=== PATIENT | male | born 1945 | race Caucasian/White ===

== ENCOUNTER 2020-06-17 17:48 | Inpatient (IN) ==
[2020-06-17] MEDS ORDERED: 0.9 % Sodium Chloride 1,000 ML IVC ONE (18:32)
[2020-06-17 19:28] LABS: Basophils # 0.1 K/mcL (0.0-0.2); Basophils % 0.5 %; Eosinophils # 0.1 K/mcL (0.0-0.6); Eosinophils % 1.1 %; Hematocrit 42.9 % (37.5-50.1); Hemoglobin 14.1 g/dL (12.9-16.9); Immature Granulocytes % 0.5 % (0-4); Lymphocytes # 1.7 K/mcL (0.6-4.6); Lymphocytes % 16.7 %; Mean Corpuscular HGB Conc 32.9 g/dL (31.6-35.5); Mean Corpuscular Hemoglobin 28.9 pg (28.0-33.3); Mean Corpuscular Volume 87.9 fL (83.0-100.0); Mean Platelet Volume 10.1 fL (9.4-12.4); Monocytes # 0.8 K/mcL (0.0-1.3); Monocytes % 8.1 %; Neutrophils # 7.5 K/mcL (1.6-8.9); Platelet Count 216 K/mcL (140-400); Red Blood Count 4.88 M/mcL (4.19-5.50); Red Cell Distribution Width 13.9 % (11.5-14.5); Segmented Neutrophils % 73.1 %; White Blood Count 10.2 K/mcL (4.3-11.1)
[2020-06-17 19:31] LABS: INR 1.2; Prothrombin Time 13.5 Seconds (9.4-12.1)
[2020-06-17 19:33] LABS: Activated Partial Thrombo Time 28.8 Seconds (26.0-36.0); D-Dimer < 215 ng/mLFEU (0-500)
[2020-06-17] MEDS ORDERED: Ipratropium/Albuterol Neb 3 ML IH ONE (19:42)
[2020-06-17] MEDS ORDERED: Dexamethasone 4 MG/ML VIAL IVP STA (19:43)
[2020-06-17 20:00] LABS: Alanine Aminotransferase 50 Units/L (7-52); Albumin 4.3 g/dL (3.5-5.7); Albumin/Globulin Ratio 1.4 (1.1-2.2); Alkaline Phosphatase 74 Units/L (34-104); Aspartate Amino Transferase 44 Units/L (13-39); BUN/Creatinine Ratio 24 (6-26); Bilirubin,Direct 0.1 mg/dL (0.0-0.2); Bilirubin,Indirect 0.2 mg/dL (0.0-1.0); Bilirubin,Total 0.3 mg/dL (0.3-1.0); Blood Urea Nitrogen 16 mg/dL (8-23); Calcium 9.4 mg/dL (8.6-10.3); Carbon Dioxide 28 mEq/L (23-29); Chloride 103 mEq/L (98-107); Glucose 203 mg/dL (70-105); Osmolality,Calculated 301 (280-300); Potassium 4.1 mEq/L (3.5-5.1); Sodium 142 mEq/L (136-145); Total Protein 7.3 g/dL (6.4-8.9); Troponin I < 0.03 ng/mL (< 0.04); eGFR For African Americans > 60 (> 60); eGFR For Non-African Americans > 60 (> 60)
[2020-06-17] MEDS ORDERED: Ondansetron 4 MG/2 ML VIAL IVP ONE (20:48)
[2020-06-17] MEDS ORDERED: Azithromycin 500 MG in 0.9 % Sodium Chloride 250 ML IVPB ONE (22:01)
[2020-06-17] MEDS ORDERED: Naloxone 0.4 MG/ML INJ IVP PRN (22:12)
[2020-06-17] MEDS ORDERED: D5% in Water 1,000 ML IVC PRN (22:20)
[2020-06-17] MEDS ORDERED: *HR* Dextrose 50 % in Water (Vial) 50 ML VIAL IVP PRN (22:20)
[2020-06-17] MEDS ORDERED: Dextrose Gel 15 GM/37.5 ML TUBE PO PRN ×2 (22:20)
[2020-06-17] MEDS: Ipratropium/Albuterol Neb 3 ML IH SCH (23:35)
[2020-06-17 23:59] LABS: ABG Base Excess 1 mEq/L (-2 to 3); ABG HCO3 26 mEq/L (21-27); ABG Oxygen Saturation 94 % (95-98); ABG PCO2 43 mmHg (35-45); ABG PH 7.39 pH Units (7.32-7.45); ABG PO2 73 mmHg (85-104); ABG TCO2 27 mEq/L (20-26)
[2020-06-18] MEDS: Melatonin 3 MG TABLET PO SCH ×2 (00:48→21:18)
[2020-06-18 02:42] LABS: Basophils % 0.3 %; Hematocrit 40.2 % (37.5-50.1); Hemoglobin 13.1 g/dL (12.9-16.9); Immature Granulocytes % 0.7 % (0-4); Lymphocytes # 1.1 K/mcL (0.6-4.6); Lymphocytes % 12.1 %; Mean Corpuscular HGB Conc 32.6 g/dL (31.6-35.5); Mean Corpuscular Hemoglobin 29.6 pg (28.0-33.3); Mean Corpuscular Volume 90.7 fL (83.0-100.0); Monocytes # 0.6 K/mcL (0.0-1.3); Monocytes % 6.3 %; Neutrophils # 7.4 K/mcL (1.6-8.9); Platelet Count 203 K/mcL (140-400); Red Blood Count 4.43 M/mcL (4.19-5.50); Red Cell Distribution Width 14.3 % (11.5-14.5); Segmented Neutrophils % 80.6 %; White Blood Count 9.1 K/mcL (4.3-11.1)
[2020-06-18 03:03] LABS: BUN/Creatinine Ratio 21 (6-26); Blood Urea Nitrogen 16 mg/dL (8-23); Calcium 9.1 mg/dL (8.6-10.3); Carbon Dioxide 25 mEq/L (23-29); Chloride 104 mEq/L (98-107); Glucose 268 mg/dL (70-105); Magnesium 1.7 mg/dL (1.6-2.6); Osmolality,Calculated 301 (280-300); Phosphorous 3.6 mg/dL (2.7-4.5); Potassium 4.1 mEq/L (3.5-5.1); Sodium 140 mEq/L (136-145); eGFR For African Americans > 60 (> 60); eGFR For Non-African Americans > 60 (> 60)
[2020-06-18] MEDS: Ipratropium/Albuterol Neb 3 ML IH SCH ×5 (04:05→20:09)
[2020-06-18] MEDS: MethylPREDNISolone 40 MG/ML VIAL IVP SCH ×3 (04:22→21:04)
[2020-06-18] MEDS: *HR* Heparin 5,000 UNIT/ML VIAL SQ SCH ×3 (06:59→21:16)
[2020-06-18] MEDS: Ondansetron 4 MG/2 ML VIAL IVP PRN (06:59)
[2020-06-18] MEDS: Budesonide/Formoterol 160/4.5 1 PUFF INH IH SCH ×2 (07:38→20:09)
[2020-06-18] MEDS: Metoprolol XL (24 HR) Succ 25 MG TAB.ER.24H PO SCH (07:59)
[2020-06-18] MEDS: Pregabalin 75 MG CAPSULE PO SCH ×3 (07:59→21:18)
[2020-06-18] MEDS: GuaiFENesin Liq 200 MG/10 ML UDC PO SCH ×2 (07:59→21:16)
[2020-06-18] MEDS: Aspirin 81 MG TAB.CHEW PO SCH (07:59)
[2020-06-18] MEDS: Ascorbic Acid 500 MG TABLET PO SCH (07:59)
[2020-06-18] MEDS: levoFLOXacin 750 MG/150 ML 750 MG/150 ML BAG IVPB SCH (07:59)
[2020-06-18] MEDS: Furosemide 20 MG/2 ML VIAL IVP SCH ×2 (07:59→17:00)
[2020-06-18] MEDS: *HR* LORazepam 1 MG TABLET PO SCH ×2 (07:59→21:18)
[2020-06-18] MEDS: Insulin LISPRO 300 UNITS/3 ML VIAL SQ SCH ×3 (08:15→17:00)
[2020-06-18] MEDS: Insulin DETEMIR 100 UNIT/ML X5UNITS SQ SCH ×2 (08:16→21:19)
[2020-06-18] MEDS ORDERED: Topiramate 100 MG TABLET PO SCH (09:00)
[2020-06-18 13:10] LABS: Estimated Average Glucose 258 mg/dl
[2020-06-19] MEDS: Ipratropium/Albuterol Neb 3 ML IH SCH ×7 (00:09→23:57)
[2020-06-19] MEDS: MethylPREDNISolone 40 MG/ML VIAL IVP SCH ×3 (04:00→20:16)
[2020-06-19] MEDS: *HR* Heparin 5,000 UNIT/ML VIAL SQ SCH ×3 (05:31→20:38)
[2020-06-19 06:56] LABS: Basophils # 0.1 K/mcL (0.0-0.2); Basophils % 0.7 %; Eosinophils # 0.1 K/mcL (0.0-0.6); Eosinophils % 0.8 %; Hematocrit 41.8 % (37.5-50.1); Hemoglobin 13.4 g/dL (12.9-16.9); Immature Granulocytes % 0.7 % (0-4); Lymphocytes # 1.7 K/mcL (0.6-4.6); Mean Corpuscular HGB Conc 32.1 g/dL (31.6-35.5); Mean Corpuscular Hemoglobin 28.9 pg (28.0-33.3); Mean Corpuscular Volume 90.3 fL (83.0-100.0); Mean Platelet Volume 11.1 fL (9.4-12.4); Monocytes # 0.8 K/mcL (0.0-1.3); Monocytes % 9.1 %; Neutrophils # 6.4 K/mcL (1.6-8.9); Platelet Count 215 K/mcL (140-400); Red Blood Count 4.63 M/mcL (4.19-5.50); Red Cell Distribution Width 14.6 % (11.5-14.5); Segmented Neutrophils % 69.7 %; White Blood Count 9.1 K/mcL (4.3-11.1)
[2020-06-19 07:17] LABS: BUN/Creatinine Ratio 26 (6-26); Blood Urea Nitrogen 21 mg/dL (8-23); Calcium 9.8 mg/dL (8.6-10.3); Carbon Dioxide 26 mEq/L (23-29); Chloride 102 mEq/L (98-107); Glucose 193 mg/dL (70-105); Magnesium 1.9 mg/dL (1.6-2.6); Osmolality,Calculated 294 (280-300); Phosphorous 3.5 mg/dL (2.7-4.5); Potassium 3.7 mEq/L (3.5-5.1); Sodium 138 mEq/L (136-145); eGFR For African Americans > 60 (> 60); eGFR For Non-African Americans > 60 (> 60)
[2020-06-19] MEDS: Budesonide/Formoterol 160/4.5 1 PUFF INH IH SCH ×2 (07:21→19:19)
[2020-06-19] MEDS: *HR* LORazepam 1 MG TABLET PO SCH (07:45)
[2020-06-19] MEDS: Aspirin 81 MG TAB.CHEW PO SCH (07:45)
[2020-06-19] MEDS: Pregabalin 75 MG CAPSULE PO SCH ×3 (07:45→20:28)
[2020-06-19] MEDS: Furosemide 20 MG/2 ML VIAL IVP SCH ×2 (07:46→16:55)
[2020-06-19] MEDS: Ascorbic Acid 500 MG TABLET PO SCH (07:46)
[2020-06-19] MEDS: GuaiFENesin Liq 200 MG/10 ML UDC PO SCH (07:46)
[2020-06-19] MEDS: Metoprolol XL (24 HR) Succ 25 MG TAB.ER.24H PO SCH (07:46)
[2020-06-19] MEDS: levoFLOXacin 750 MG/150 ML 750 MG/150 ML BAG IVPB SCH (07:46)
[2020-06-19] MEDS: Insulin LISPRO 300 UNITS/3 ML VIAL SQ SCH ×3 (07:51→16:55)
[2020-06-19] MEDS: Insulin DETEMIR 100 UNIT/ML X5UNITS SQ SCH ×2 (07:52→20:29)
[2020-06-19] MEDS ORDERED: *HR* LORazepam 1 MG TABLET PO PRN (14:08)
[2020-06-19] MEDS: Ondansetron 4 MG/2 ML VIAL IVP PRN (20:28)
[2020-06-19] MEDS: Melatonin 3 MG TABLET PO SCH (20:29)
[2020-06-20] MEDS: MethylPREDNISolone 40 MG/ML VIAL IVP SCH ×3 (01:15→16:17)
[2020-06-20] MEDS: Ipratropium/Albuterol Neb 3 ML IH SCH ×6 (03:50→23:44)
[2020-06-20 05:52] LABS: Basophils # 0.1 K/mcL (0.0-0.2); Basophils % 0.6 %; Eosinophils % 0.3 %; Hematocrit 41.7 % (37.5-50.1); Hemoglobin 13.4 g/dL (12.9-16.9); Immature Granulocytes % 0.5 % (0-4); Lymphocytes # 1.4 K/mcL (0.6-4.6); Lymphocytes % 15.7 %; Mean Corpuscular HGB Conc 32.1 g/dL (31.6-35.5); Mean Corpuscular Hemoglobin 29.1 pg (28.0-33.3); Mean Corpuscular Volume 90.5 fL (83.0-100.0); Mean Platelet Volume 10.2 fL (9.4-12.4); Monocytes # 0.6 K/mcL (0.0-1.3); Monocytes % 6.5 %; Neutrophils # 6.7 K/mcL (1.6-8.9); Platelet Count 200 K/mcL (140-400); Red Blood Count 4.61 M/mcL (4.19-5.50); Red Cell Distribution Width 14.6 % (11.5-14.5); Segmented Neutrophils % 76.4 %; White Blood Count 8.7 K/mcL (4.3-11.1)
[2020-06-20 06:10] LABS: BUN/Creatinine Ratio 26 (6-26); Blood Urea Nitrogen 24 mg/dL (8-23); Calcium 9.3 mg/dL (8.6-10.3); Carbon Dioxide 24 mEq/L (23-29); Chloride 103 mEq/L (98-107); Glucose 303 mg/dL (70-105); Magnesium 1.9 mg/dL (1.6-2.6); Osmolality,Calculated 297 (280-300); Phosphorous 3.9 mg/dL (2.7-4.5); Potassium 4.6 mEq/L (3.5-5.1); Sodium 136 mEq/L (136-145); eGFR For African Americans > 60 (> 60); eGFR For Non-African Americans > 60 (> 60)
[2020-06-20] MEDS: *HR* Heparin 5,000 UNIT/ML VIAL SQ SCH ×3 (06:22→20:36)
[2020-06-20] MEDS: Insulin LISPRO 300 UNITS/3 ML VIAL SQ SCH ×3 (08:16→16:19)
[2020-06-20] MEDS: Budesonide/Formoterol 160/4.5 1 PUFF INH IH SCH ×2 (08:20→20:04)
[2020-06-20] MEDS: Azithromycin 250 MG TABLET PO SCH (08:27)
[2020-06-20] MEDS: Furosemide 20 MG/2 ML VIAL IVP SCH ×2 (08:27→16:18)
[2020-06-20] MEDS: Metoprolol XL (24 HR) Succ 25 MG TAB.ER.24H PO SCH (08:27)
[2020-06-20] MEDS: Ascorbic Acid 500 MG TABLET PO SCH (08:28)
[2020-06-20] MEDS: Aspirin 81 MG TAB.CHEW PO SCH (08:28)
[2020-06-20] MEDS: Pregabalin 75 MG CAPSULE PO SCH ×3 (08:28→20:25)
[2020-06-20] MEDS: Insulin DETEMIR 100 UNIT/ML X5UNITS SQ SCH ×2 (08:37→20:37)
[2020-06-20] MEDS: Melatonin 3 MG TABLET PO SCH (20:25)
[2020-06-21] MEDS: MethylPREDNISolone 40 MG/ML VIAL IVP SCH ×2 (00:32→18:53)
[2020-06-21] MEDS: Ipratropium/Albuterol Neb 3 ML IH SCH ×5 (04:09→20:22)
[2020-06-21 06:27] LABS: Basophils % 0.4 %; Eosinophils % 0.1 %; Hematocrit 42.4 % (37.5-50.1); Hemoglobin 13.4 g/dL (12.9-16.9); Immature Granulocytes % 0.6 % (0-4); Lymphocytes # 1.6 K/mcL (0.6-4.6); Lymphocytes % 16.9 %; Mean Corpuscular HGB Conc 31.6 g/dL (31.6-35.5); Mean Corpuscular Hemoglobin 28.6 pg (28.0-33.3); Mean Corpuscular Volume 90.4 fL (83.0-100.0); Mean Platelet Volume 10.9 fL (9.4-12.4); Monocytes # 0.7 K/mcL (0.0-1.3); Monocytes % 7.1 %; Neutrophils # 7.3 K/mcL (1.6-8.9); Platelet Count 218 K/mcL (140-400); Red Blood Count 4.69 M/mcL (4.19-5.50); Red Cell Distribution Width 14.4 % (11.5-14.5); Segmented Neutrophils % 74.9 %; White Blood Count 9.7 K/mcL (4.3-11.1)
[2020-06-21 06:45] LABS: BUN/Creatinine Ratio 33 (6-26); Blood Urea Nitrogen 26 mg/dL (8-23); Calcium 9.3 mg/dL (8.6-10.3); Carbon Dioxide 24 mEq/L (23-29); Chloride 102 mEq/L (98-107); Glucose 315 mg/dL (70-105); Magnesium 2.1 mg/dL (1.6-2.6); Osmolality,Calculated 299 (280-300); Potassium 4.5 mEq/L (3.5-5.1); Sodium 136 mEq/L (136-145); eGFR For African Americans > 60 (> 60); eGFR For Non-African Americans > 60 (> 60)
[2020-06-21] MEDS: *HR* Heparin 5,000 UNIT/ML VIAL SQ SCH (06:50)
[2020-06-21] MEDS ORDERED: Morphine Sulfate 2 MG/ML SYRINGE IVP ONE (07:56)
[2020-06-21] MEDS: Nitroglycerin 0.4 MG TAB.SUBL SL PRN ×3 (07:59→08:14)
[2020-06-21] MEDS ORDERED: Perflutren Lipid Microsphere 1.3 ML in 0.9 % Sodium Chloride 8.7 ML IVP PRN (08:05)
[2020-06-21] MEDS ORDERED: *HR* Heparin 5,000 UNIT/ML VIAL IVP ONE (08:09)
[2020-06-21] MEDS ORDERED: *HR* Heparin 5,000 UNIT/ML VIAL IVP PRN ×2 (08:09)
[2020-06-21] MEDS ORDERED: Aspirin 325 MG TABLET PO ONE (08:11)
[2020-06-21] MEDS ORDERED: Heparin 25,000UNIT/250ML 1/2NS 25,000 UNIT/250 ML IV.SOLN IVC SCH (08:15)
[2020-06-21] MEDS: Pregabalin 75 MG CAPSULE PO SCH ×3 (08:24→20:44)
[2020-06-21] MEDS: Azithromycin 250 MG TABLET PO SCH (08:24)
[2020-06-21] MEDS: Metoprolol XL (24 HR) Succ 25 MG TAB.ER.24H PO SCH (08:24)
[2020-06-21] MEDS: Insulin LISPRO 300 UNITS/3 ML VIAL SQ SCH ×3 (08:25→16:40)
[2020-06-21] MEDS: Ascorbic Acid 500 MG TABLET PO SCH (08:25)
[2020-06-21] MEDS: Furosemide 20 MG/2 ML VIAL IVP SCH ×2 (08:30→16:47)
[2020-06-21] MEDS: Aspirin 81 MG TAB.CHEW PO SCH (08:46)
[2020-06-21] MEDS: Insulin DETEMIR 100 UNIT/ML X5UNITS SQ SCH ×3 (08:50→20:49)
[2020-06-21 10:37] LABS: Hematocrit 41.7 % (37.5-50.1); Hemoglobin 13.5 g/dL (12.9-16.9); Mean Corpuscular HGB Conc 32.4 g/dL (31.6-35.5); Mean Corpuscular Hemoglobin 29.5 pg (28.0-33.3); Mean Corpuscular Volume 91.2 fL (83.0-100.0); Mean Platelet Volume 10.5 fL (9.4-12.4); Platelet Count 200 K/mcL (140-400); Red Blood Count 4.57 M/mcL (4.19-5.50); Red Cell Distribution Width 14.3 % (11.5-14.5)
[2020-06-21 10:44] LABS: INR 1.2; Prothrombin Time 13.6 Seconds (9.4-12.1)
[2020-06-21 10:47] LABS: Heparin anti-factor XA UFH 1.35 IU/mL (0.30-0.70)
[2020-06-21] MEDS: Budesonide/Formoterol 160/4.5 1 PUFF INH IH SCH ×2 (11:47→20:22)
[2020-06-21] MEDS: predniSONE 20 MG TABLET PO SCH (16:48)
[2020-06-21] MEDS: Melatonin 3 MG TABLET PO SCH (20:44)
[2020-06-22] MEDS: Ipratropium/Albuterol Neb 3 ML IH SCH ×7 (00:13→23:54)
[2020-06-22 06:00] LABS: Basophils # 0.1 K/mcL (0.0-0.2); Basophils % 0.5 %; Eosinophils % 0.4 %; Hematocrit 40.8 % (37.5-50.1); Hemoglobin 13.4 g/dL (12.9-16.9); Immature Granulocytes % 0.7 % (0-4); Lymphocytes # 2.5 K/mcL (0.6-4.6); Lymphocytes % 24.3 %; Mean Corpuscular HGB Conc 32.8 g/dL (31.6-35.5); Mean Corpuscular Hemoglobin 29.8 pg (28.0-33.3); Mean Corpuscular Volume 90.9 fL (83.0-100.0); Mean Platelet Volume 10.9 fL (9.4-12.4); Monocytes % 9.6 %; Neutrophils # 6.6 K/mcL (1.6-8.9); Platelet Count 215 K/mcL (140-400); Red Blood Count 4.49 M/mcL (4.19-5.50); Red Cell Distribution Width 14.3 % (11.5-14.5); Segmented Neutrophils % 64.5 %; White Blood Count 10.3 K/mcL (4.3-11.1)
[2020-06-22] MEDS ORDERED: Regadenoson 0.4 MG/5 ML SYRINGE IVP ONE (06:00)
[2020-06-22 06:19] LABS: BUN/Creatinine Ratio 39 (6-26); Blood Urea Nitrogen 27 mg/dL (8-23); Calcium 9.2 mg/dL (8.6-10.3); Carbon Dioxide 25 mEq/L (23-29); Chloride 103 mEq/L (98-107); Glucose 233 mg/dL (70-105); Osmolality,Calculated 299 (280-300); Phosphorous 3.9 mg/dL (2.7-4.5); Sodium 138 mEq/L (136-145); eGFR For African Americans > 60 (> 60); eGFR For Non-African Americans > 60 (> 60)
[2020-06-22] MEDS: Budesonide/Formoterol 160/4.5 1 PUFF INH IH SCH ×2 (07:29→20:03)
[2020-06-22] MEDS: Insulin LISPRO 300 UNITS/3 ML VIAL SQ SCH ×3 (10:07→17:53)
[2020-06-22] MEDS: Furosemide 20 MG/2 ML VIAL IVP SCH ×2 (10:35→17:54)
[2020-06-22] MEDS: Aspirin 81 MG TAB.CHEW PO SCH (10:36)
[2020-06-22] MEDS: Azithromycin 250 MG TABLET PO SCH (10:36)
[2020-06-22] MEDS: Pregabalin 75 MG CAPSULE PO SCH ×3 (10:36→21:09)
[2020-06-22] MEDS: Metoprolol XL (24 HR) Succ 25 MG TAB.ER.24H PO SCH (10:37)
[2020-06-22] MEDS: Ascorbic Acid 500 MG TABLET PO SCH (10:37)
[2020-06-22] MEDS: predniSONE 20 MG TABLET PO SCH ×2 (10:37→17:54)
[2020-06-22] MEDS: Insulin DETEMIR 100 UNIT/ML X5UNITS SQ SCH ×2 (10:38→21:13)
[2020-06-22] MEDS ORDERED: Isovue-370 500 ML BOTTLE IVP ONE (14:17)
[2020-06-22] MEDS: *HR* Heparin 5,000 UNIT/ML VIAL SQ SCH (17:54)
[2020-06-22] MEDS: Melatonin 3 MG TABLET PO SCH (21:10)
[2020-06-22] MEDS: Ondansetron 4 MG/2 ML VIAL IVP PRN (21:14)
[2020-06-23] MEDS: Ipratropium/Albuterol Neb 3 ML IH SCH ×4 (03:52→15:32)
[2020-06-23 06:24] LABS: White Blood Count 11.8 K/mcL (4.3-11.1)
[2020-06-23 06:25] LABS: Basophils # 0.1 K/mcL (0.0-0.2); Basophils % 0.4 %; Hematocrit 42.6 % (37.5-50.1); Immature Granulocytes % 0.9 % (0-4); Lymphocytes # 2.3 K/mcL (0.6-4.6); Lymphocytes % 19.1 %; Mean Corpuscular HGB Conc 32.9 g/dL (31.6-35.5); Mean Corpuscular Hemoglobin 29.5 pg (28.0-33.3); Mean Corpuscular Volume 89.7 fL (83.0-100.0); Mean Platelet Volume 10.6 fL (9.4-12.4); Monocytes % 8.5 %; Neutrophils # 8.4 K/mcL (1.6-8.9); Platelet Count 234 K/mcL (140-400); Red Blood Count 4.75 M/mcL (4.19-5.50); Red Cell Distribution Width 14.5 % (11.5-14.5); Segmented Neutrophils % 71.1 %
[2020-06-23] MEDS: *HR* Heparin 5,000 UNIT/ML VIAL SQ SCH (06:32)
[2020-06-23 06:43] LABS: BUN/Creatinine Ratio 41 (6-26); Blood Urea Nitrogen 31 mg/dL (8-23); Calcium 9.4 mg/dL (8.6-10.3); Carbon Dioxide 27 mEq/L (23-29); Chloride 103 mEq/L (98-107); Glucose 245 mg/dL (70-105); Magnesium 2.3 mg/dL (1.6-2.6); Osmolality,Calculated 301 (280-300); Phosphorous 4.6 mg/dL (2.7-4.5); Potassium 4.4 mEq/L (3.5-5.1); Sodium 138 mEq/L (136-145); eGFR For African Americans > 60 (> 60); eGFR For Non-African Americans > 60 (> 60)
[2020-06-23] MEDS: Budesonide/Formoterol 160/4.5 1 PUFF INH IH SCH (07:32)
[2020-06-23] MEDS: Aspirin 81 MG TAB.CHEW PO SCH (09:09)
[2020-06-23] MEDS: Ascorbic Acid 500 MG TABLET PO SCH (09:09)
[2020-06-23] MEDS: Metoprolol XL (24 HR) Succ 25 MG TAB.ER.24H PO SCH (09:09)
[2020-06-23] MEDS: Furosemide 20 MG/2 ML VIAL IVP SCH (09:09)
[2020-06-23] MEDS: predniSONE 20 MG TABLET PO SCH (09:09)
[2020-06-23] MEDS: Azithromycin 250 MG TABLET PO SCH (09:09)
[2020-06-23] MEDS: Pregabalin 75 MG CAPSULE PO SCH (09:09)
[2020-06-23] MEDS: Insulin LISPRO 300 UNITS/3 ML VIAL SQ SCH ×2 (09:10→12:11)
[2020-06-23] MEDS: Insulin DETEMIR 100 UNIT/ML X5UNITS SQ SCH (09:20)
[2020-06-23 15:55] VITALS: BP 125/59
== END 2020-06-23 16:40 | disposition home health service (06) | DRG 189 ==
LOC: 3ANU 17:48 → EMEROOARM 17:48 → 3ANU 23:07
PROVIDERS: ADMIT Internal Medicine; ATTEND Internal Medicine

== ENCOUNTER 2021-03-24 19:50 | Inpatient (IN) ==
[2021-03-24 20:27] LABS: VBG HCO3 31 mEq/L (21-27); VBG PCO2 55 mmHg (41-51); VBG PH 7.36 pH Units (7.32-7.42); VBG PO2 39 mmHg (25-50)
[2021-03-24 20:33] LABS: Basophils # 0.1 K/mcL (0.0-0.2); Basophils % 0.6 %; Eosinophils # 0.2 K/mcL (0.0-0.6); Eosinophils % 2.6 %; Hematocrit 40.1 % (37.5-50.1); Hemoglobin 12.9 g/dL (12.9-16.9); Immature Granulocytes % 0.2 % (0-4); Lymphocytes # 1.1 K/mcL (0.6-4.6); Lymphocytes % 11.7 %; Mean Corpuscular HGB Conc 32.2 g/dL (31.6-35.5); Mean Corpuscular Hemoglobin 25.7 pg (28.0-33.3); Mean Corpuscular Volume 79.9 fL (83.0-100.0); Monocytes # 1.3 K/mcL (0.0-1.3); Monocytes % 13.6 %; Neutrophils # 6.6 K/mcL (1.6-8.9); Platelet Count 214 K/mcL (140-400); Red Blood Count 5.02 M/mcL (4.19-5.50); Segmented Neutrophils % 71.3 %; White Blood Count 9.3 K/mcL (4.3-11.1)
[2021-03-24 20:51] LABS: BUN/Creatinine Ratio 18 (6-26); Blood Urea Nitrogen 14 mg/dL (8-23); Calcium 9.6 mg/dL (8.6-10.3); Carbon Dioxide 29 mEq/L (23-29); Chloride 101 mEq/L (98-107); Glucose 160 mg/dL (70-105); Osmolality,Calculated 298 (280-300); Potassium 3.8 mEq/L (3.5-5.1); Sodium 142 mEq/L (136-145); eGFR For African Americans > 60 (> 60); eGFR For Non-African Americans > 60 (> 60)
[2021-03-24 20:52] LABS: Troponin I < 0.03 ng/mL (< 0.04)
[2021-03-24] MEDS ORDERED: predniSONE 20 MG TABLET PO ONE (21:16)
[2021-03-24] MEDS ORDERED: Ipratropium/Albuterol Neb 3 ML IH ONE (21:16)
[2021-03-25] MEDS ORDERED: Albuterol 2.5 MG/3 ML NEBULIZER IH PRN (00:52)
[2021-03-25] MEDS ORDERED: Naloxone 0.4 MG/ML INJ IVP PRN (01:03)
[2021-03-25] MEDS ORDERED: Ipratropium 1 PUFF INHALER IH PRN (01:05)
[2021-03-25] MEDS ORDERED: *HR* Dextrose 50 % in Water (Vial) 50 ML VIAL IVP PRN (01:07)
[2021-03-25] MEDS ORDERED: D5% in Water 1,000 ML IVC PRN (01:07)
[2021-03-25] MEDS ORDERED: Dextrose Gel 15 GM/37.5 ML TUBE PO PRN ×2 (01:07)
[2021-03-25 03:01] LABS: Hemoglobin 11.9 g/dL (12.9-16.9); Mean Corpuscular HGB Conc 33.1 g/dL (31.6-35.5); Mean Corpuscular Volume 78.6 fL (83.0-100.0); Mean Platelet Volume 10.5 fL (9.4-12.4); Platelet Count 195 K/mcL (140-400); Red Blood Count 4.58 M/mcL (4.19-5.50); Red Cell Distribution Width 17.6 % (11.5-14.5); White Blood Count 8.5 K/mcL (4.3-11.1)
[2021-03-25 03:15] LABS: BUN/Creatinine Ratio 19 (6-26); Blood Urea Nitrogen 15 mg/dL (8-23); Calcium 9.1 mg/dL (8.6-10.3); Carbon Dioxide 26 mEq/L (23-29); Chloride 103 mEq/L (98-107); Glucose 215 mg/dL (70-105); Lactate Dehydrogenase 197 Units/L (140-271); Osmolality,Calculated 295 (280-300); Potassium 4.5 mEq/L (3.5-5.1); Sodium 139 mEq/L (136-145); eGFR For African Americans > 60 (> 60); eGFR For Non-African Americans > 60 (> 60)
[2021-03-25] MEDS: Azithromycin 500 MG in 0.9 % Sodium Chloride 250 ML IVPB SCH (03:30)
[2021-03-25] MEDS: *HR* Enoxaparin 40 MG/0.4 ML SYRINGE SQ SCH (04:53)
[2021-03-25] MEDS: Insulin LISPRO 300 UNITS/3 ML VIAL SUBQ SCH ×3 (09:06→17:21)
[2021-03-25] MEDS ORDERED: polyethylene glycoL 3350 17 GM POWD.PACK PO PRN (15:02)
[2021-03-25] MEDS: Ondansetron 4 MG/2 ML VIAL IVP PRN (17:27)
[2021-03-25] MEDS: Budesonide/Formoterol 160/4.5 1 PUFF INH IH SCH (20:13)
[2021-03-25] MEDS: *HR* LORazepam 1 MG TABLET PO PRN (20:37)
[2021-03-25] MEDS: Insulin DETEMIR 100 UNIT/ML X5UNITS SUBQ SCH (20:38)
[2021-03-25] MEDS: QUEtiapine Fumarate 100 MG TABLET PO SCH (20:38)
[2021-03-25] MEDS: Pregabalin 75 MG CAPSULE PO SCH (20:38)
[2021-03-25] MEDS: Lidocaine 5% OINT 35 APPL/35.44 GM TUBE TP SCH (20:39)
[2021-03-25] MEDS: Magnesium Oxide 400 MG TABLET PO SCH (20:39)
[2021-03-25] MEDS: GuaiFENesin Liq 200 MG/10 ML UDC PO SCH (22:12)
[2021-03-25] MEDS: tiZANidine 4 MG TABLET PO SCH (22:16)
[2021-03-26] MEDS: Azithromycin 500 MG in 0.9 % Sodium Chloride 250 ML IVPB SCH (02:28)
[2021-03-26] MEDS: *HR* Enoxaparin 40 MG/0.4 ML SYRINGE SQ SCH (05:48)
[2021-03-26] MEDS: Insulin LISPRO 300 UNITS/3 ML VIAL SUBQ SCH ×3 (08:32→17:08)
[2021-03-26] MEDS: Cholecalciferol (D-3) 1,000 UNIT (25MCG) TABLET PO SCH (08:33)
[2021-03-26] MEDS: Magnesium Oxide 400 MG TABLET PO SCH ×2 (08:33→20:43)
[2021-03-26] MEDS: *HR* LORazepam 1 MG TABLET PO PRN ×2 (08:33→20:44)
[2021-03-26] MEDS: Aspirin 81 MG TAB.CHEW PO SCH (08:33)
[2021-03-26] MEDS: Isosorbide MONOnitrate (24 HR) 30 MG TAB.ER.24H PO SCH (08:34)
[2021-03-26] MEDS: Furosemide 40 MG TABLET PO SCH (08:34)
[2021-03-26] MEDS: Metoprolol XL (24 HR) Succ 25 MG TAB.ER.24H PO SCH (08:35)
[2021-03-26] MEDS: Pregabalin 75 MG CAPSULE PO SCH ×2 (08:36→20:43)
[2021-03-26] MEDS: Lidocaine 5% OINT 35 APPL/35.44 GM TUBE TP SCH ×2 (08:37→20:43)
[2021-03-26] MEDS: Budesonide/Formoterol 160/4.5 1 PUFF INH IH SCH ×2 (08:46→20:24)
[2021-03-26] MEDS: GuaiFENesin Liq 200 MG/10 ML UDC PO SCH ×3 (08:54→20:43)
[2021-03-26] MEDS: Tiotropium 10 INH DOSE IH SCH (10:54)
[2021-03-26] MEDS ORDERED: *HR* OxyCODONE/APAP 5/325 TABLET PO PRN (13:39)
[2021-03-26] MEDS: Insulin DETEMIR 100 UNIT/ML X5UNITS SUBQ SCH (20:42)
[2021-03-26] MEDS: QUEtiapine Fumarate 100 MG TABLET PO SCH (20:43)
[2021-03-26] MEDS: tiZANidine 4 MG TABLET PO SCH (20:44)
[2021-03-27] MEDS: Azithromycin 500 MG in 0.9 % Sodium Chloride 250 ML IVPB SCH (03:32)
[2021-03-27] MEDS: *HR* Enoxaparin 40 MG/0.4 ML SYRINGE SQ SCH (05:56)
[2021-03-27] MEDS: Tiotropium 10 INH DOSE IH SCH (07:28)
[2021-03-27] MEDS: Budesonide/Formoterol 160/4.5 1 PUFF INH IH SCH (07:28)
[2021-03-27] MEDS: GuaiFENesin Liq 200 MG/10 ML UDC PO SCH (09:02)
[2021-03-27] MEDS: Pregabalin 75 MG CAPSULE PO SCH (09:02)
[2021-03-27] MEDS: *HR* LORazepam 1 MG TABLET PO PRN (09:03)
[2021-03-27] MEDS: Furosemide 40 MG TABLET PO SCH (09:03)
[2021-03-27] MEDS: Aspirin 81 MG TAB.CHEW PO SCH (09:03)
[2021-03-27] MEDS: Cholecalciferol (D-3) 1,000 UNIT (25MCG) TABLET PO SCH (09:03)
[2021-03-27] MEDS: Metoprolol XL (24 HR) Succ 25 MG TAB.ER.24H PO SCH (09:03)
[2021-03-27 09:04] LABS: Basophils % 0.4 %; Hematocrit 39.7 % (37.5-50.1); Hemoglobin 12.6 g/dL (12.9-16.9); Immature Granulocytes % 0.4 % (0-4); Lymphocytes # 1.9 K/mcL (0.6-4.6); Lymphocytes % 22.9 %; Mean Corpuscular HGB Conc 31.7 g/dL (31.6-35.5); Mean Corpuscular Hemoglobin 25.5 pg (28.0-33.3); Mean Corpuscular Volume 80.4 fL (83.0-100.0); Mean Platelet Volume 11.1 fL (9.4-12.4); Monocytes # 1.2 K/mcL (0.0-1.3); Monocytes % 13.7 %; Neutrophils # 5.3 K/mcL (1.6-8.9); Platelet Count 182 K/mcL (140-400); Red Blood Count 4.94 M/mcL (4.19-5.50); Red Cell Distribution Width 18.2 % (11.5-14.5); Segmented Neutrophils % 62.6 %; White Blood Count 8.4 K/mcL (4.3-11.1)
[2021-03-27] MEDS: Magnesium Oxide 400 MG TABLET PO SCH (09:10)
[2021-03-27] MEDS: Isosorbide MONOnitrate (24 HR) 30 MG TAB.ER.24H PO SCH (09:11)
[2021-03-27] MEDS: Lidocaine 5% OINT 35 APPL/35.44 GM TUBE TP SCH (09:14)
[2021-03-27] MEDS: Insulin LISPRO 300 UNITS/3 ML VIAL SUBQ SCH ×2 (09:17→11:26)
[2021-03-27] MEDS: Ondansetron 4 MG/2 ML VIAL IVP PRN (09:19)
[2021-03-27 09:22] LABS: BUN/Creatinine Ratio 26 (6-26); Blood Urea Nitrogen 23 mg/dL (8-23); Calcium 8.8 mg/dL (8.6-10.3); Carbon Dioxide 26 mEq/L (23-29); Chloride 106 mEq/L (98-107); Glucose 110 mg/dL (70-105); Osmolality,Calculated 294 (280-300); Potassium 4.1 mEq/L (3.5-5.1); Sodium 140 mEq/L (136-145); eGFR For African Americans > 60 (> 60); eGFR For Non-African Americans > 60 (> 60)
[2021-03-27 11:20] VITALS: BP 115/93; PULSE 95; TEMP 99.1; O2SAT 90
== END 2021-03-27 13:04 | disposition home or self-care (01) | DRG 178 ==
LOC: EMEROOARM 19:50 → 2NENU 19:50 → SUATTDRO 23:36 → 2NENU 03-25 00:19
PROVIDERS: ADMIT Student in an Organized Health Care Education/Training Program; ATTEND Internal Medicine